=== PATIENT | female | born 1990 | race Caucasian/White ===

== ENCOUNTER 2017-01-18 16:12 | Outpatient (CLI) | payer OTHER ==
[~2017-01-18] VITALS: Ht 162.6 cm; Wt 75.0 kg
[~2017-01-18 16:12] MED LIST: AMOX-291 PO; CEFT1VIA6 IM; IBUP800T PO; ONDA4TAB7 PO; OXYC-302 PO; PREN1TAB27 PO; PROM25SU34 RC; PROM25TA10 PO
[2017-01-18 16:19] VITALS: BP 125/69
== END 2017-01-18 17:02 | disposition home or self-care (01) ==
LOC: LDOP 16:12
PROVIDERS: ATTEND Obstetrics & Gynecology
DX: O26.893 Other specified pregnancy related conditions, third trimester (principal); M54.9 Dorsalgia, unspecified; Z3A.37 37 weeks gestation of pregnancy
CPT/HCPCS: 59025; 99211; G0463

== ENCOUNTER 2017-02-03 09:08 | Inpatient (IN) | payer OTHER ==
[~2017-02-03] VITALS: Ht 162.6 cm; Wt 74.0 kg
[2017-02-03 09:23] VITALS: BP 129/61
[2017-02-03] MEDS ORDERED: PREN-3 PO (09:31)
[2017-02-03] MEDS ORDERED: OXYTOCIN 30U/ 0.9% NaCL 500ML 500 ML IV ONE (09:34)
[2017-02-03] MEDS: LACTATED RINGERS 1,000 ML IV SCH ×7 (09:58→19:41)
[2017-02-03] MEDS ORDERED: TERBUTALINE 1 MG/ML, 1ML IVPush PRN ×2 (10:00)
[2017-02-03] MEDS ORDERED: FENTANYL PF 100 MCG/2ML IV PRN (10:00)
[2017-02-03] MEDS ORDERED: CALCIUM CARBONATE 500 MG TAB.CHEW PO PRN ×3 (10:00→18:00)
[2017-02-03] MEDS ORDERED: FENTANYL PF 100 MCG/2ML IVPush PRN (10:00)
[2017-02-03] MEDS ORDERED: TERBUTALINE 1 MG/ML, 1ML SQ PRN (10:00)
[2017-02-03] MEDS ORDERED: ONDANSETRON 2MG/ML, 2ML ONE ×2 (10:43→16:31)
[2017-02-03] MEDS: ONDANSETRON 2MG/ML, 2ML IVPush PRN ×2 (10:47→16:33)
[2017-02-03] MEDS ORDERED: FENTANYL/BUPIV./NS/PF 250 ML EPIDCONT ONE (11:05)
[2017-02-03] MEDS ORDERED: BUPIVACAINE/PF 0.25% ONE (11:05)
[2017-02-03] MEDS ORDERED: FENTANYL/BUPIV./NS/PF 250 ML EPIDCONT SCH ×2 (11:41)
[2017-02-03] MEDS ORDERED: LACTATED RINGERS 1,000 ML IVBOLUS PRN ×2 (12:00)
[2017-02-03] MEDS ORDERED: EPHEDRINE 50 MG/ML, 1ML IVPush PRN ×2 (12:00)
[2017-02-03] MEDS ORDERED: NALOXONE 0.4 MG/ML, 1ML IVPush PRN ×2 (12:00)
[2017-02-03] MEDS ORDERED: CALCIUM CARBONATE 500 MG TAB.CHEW ONE (13:09)
[2017-02-03] MEDS ORDERED: OXYTOCIN 30U/ 0.9% NaCL 500ML 500 ML IV PRN (14:04)
[2017-02-03] MEDS ORDERED: OXYTOCIN 30U/ 0.9% NaCL 500ML 500 ML ONE ×2 (14:07→19:34)
[2017-02-03] MEDS ORDERED: IBUPROFEN 600 MG TABLET ONE (17:25)
[2017-02-03] MEDS: OXYTOCIN 30U/ 0.9% NaCL 500ML 500 ML IV SCH ×6 (17:32→23:16)
[2017-02-03] MEDS: IBUPROFEN 600 MG TABLET PO PRN ×2 (17:46→23:35)
[2017-02-03] MEDS ORDERED: ACETAMINOPHEN 325 MG TABLET PO PRN ×3 (18:00)
[2017-02-03] MEDS ORDERED: OXYTOCIN 10 UNITS/ML, 1ML IM PRN (18:00)
[2017-02-03] MEDS ORDERED: DOCUSATE 100 MG CAPSULE PO PRN (18:00)
[2017-02-03] MEDS ORDERED: METHYLERGONOVINE 0.2 MG/ML IM PRN (18:00)
[2017-02-03] MEDS ORDERED: DIPH,PERTUSS(ACELL),TET VAC/PF NC IM-VACC PRN (18:00)
[2017-02-03] MEDS ORDERED: ONDANSETRON 2MG/ML, 2ML IV PRN (18:00)
[2017-02-03] MEDS ORDERED: OXYcodone/APAP 5/325MG TABLET ONE (18:54)
[2017-02-03] MEDS: OXYcodone/APAP 5/325MG TABLET PO PRN ×2 (19:00→23:35)
[2017-02-03 21:30] VITALS: BP 114/67
[2017-02-04 00:30] VITALS: BP 96/56
[2017-02-04] MEDS: OXYcodone/APAP 5/325MG TABLET PO PRN ×6 (00:32→23:45)
[2017-02-04] MEDS: OXYTOCIN 30U/ 0.9% NaCL 500ML 500 ML IV SCH ×5 (00:42→05:00)
[2017-02-04] MEDS: LACTATED RINGERS 1,000 ML IV SCH ×2 (03:41)
[2017-02-04 04:40] VITALS: BP 107/67
[2017-02-04] MEDS: IBUPROFEN 600 MG TABLET PO PRN ×3 (05:46→19:11)
[2017-02-04 07:38] VITALS: BP 104/58
[2017-02-04] MEDS: PRENATAL VIT/IRON/FA 1 EACH TABLET PO SCH (07:38)
[2017-02-04 16:30] VITALS: BP 107/68
[2017-02-04 19:50] VITALS: BP 110/67
[2017-02-05] MEDS: IBUPROFEN 600 MG TABLET PO PRN ×2 (01:50→05:48)
[2017-02-05] MEDS: OXYcodone/APAP 5/325MG TABLET PO PRN ×3 (05:48→15:19)
[2017-02-05] MEDS: PRENATAL VIT/IRON/FA 1 EACH TABLET PO SCH (08:25)
[2017-02-05 09:00] VITALS: BP 113/60
[2017-02-05] MEDS ORDERED: OXYC-302 PO (10:57)
[2017-02-05] MEDS ORDERED: IBUP-1222 PO (10:58)
[2017-02-05] MEDS ORDERED: FERR325T23 PO (10:58)
[2017-02-05] MEDS ORDERED: SENN-25 PO (10:59)
== END 2017-02-05 15:50 | disposition home or self-care (01) | DRG 775 ==
LOC: LDIP 09:08 → 2NW 20:57
PROVIDERS: ADMIT Obstetrics & Gynecology; ATTEND Obstetrics & Gynecology
PROC: 10E0XZZ Delivery of Products of Conception, External Approach (ICD-10-PCS; principal; 2017-02-03)
PROC: 10907ZC Drainage of Amniotic Fluid, Therapeutic from Products of Conception, Via Natural or Artificial Opening (ICD-10-PCS; 2017-02-03)
PROC: 00HU33Z Insertion of Infusion Device into Spinal Canal, Percutaneous Approach (ICD-10-PCS; 2017-02-03)
PROC: 3E0R3CZ (ICD-10-PCS; 2017-02-03)
DX: O26.893 Other specified pregnancy related conditions, third trimester (principal); Z37.0 Single live birth; Z3A.39 39 weeks gestation of pregnancy; O69.81X0 Labor and delivery complicated by cord around neck, without compression, not applicable or unspecified
CPT/HCPCS: 36415; 85025; 86850; 86900; J2405; J3490; J2590; J3010; J7120